=== PATIENT | female | born 1930 | race Caucasian/White ===

== ENCOUNTER 2017-02-09 17:06 | Inpatient (IN) | payer MEDICARE, OTHER ==
[2017-02-09] MEDS ORDERED: SODIUM CHLORIDE 0.9% 1,000 ML IV ONE (17:16)
[2017-02-09] MEDS ORDERED: IOPAMIDOL-300 100 ML VIAL IVP ONE (18:50)
[2017-02-09] MEDS ORDERED: VANCOMYCIN INJ 1 GM in SODIUM CHLORIDE 0.9% 250 ML IV STA (20:05)
[2017-02-09] MEDS ORDERED: AMPICILLIN/SULBACTAM 3 GM in SODIUM CHLORIDE 0.9% MINIBAG 100 ML IV STA (20:05)
[2017-02-09] MEDS ORDERED: VANCOMYCIN 1 GM VIAL ONE (20:12)
[2017-02-09] MEDS ORDERED: SODIUM CHLORIDE FLUSH 0.9% 10 ML SYRINGE IVP PRN (20:38)
[2017-02-09] MEDS ORDERED: HYDROcod/ACETAM 5/325 MG TABLET PO PRN (20:38)
[2017-02-09] MEDS ORDERED: ONDANSETRON 4 MG/2 ML VIAL IVP PRN (20:38)
[2017-02-09] MEDS ORDERED: ACETAMINOPHEN 325 MG TABLET PO PRN (20:41)
[2017-02-09] MEDS ORDERED: AMPICILLIN/SULBACTAM 3 GM in SODIUM CHLORIDE 0.9% MINIBAG 100 ML IV SCH (21:00)
[2017-02-09] MEDS ORDERED: VANCOMYCIN PER PHARMACY 1 GM in SODIUM CHLORIDE 0.9% 250 ML IV SCH (21:00)
[2017-02-09] MEDS ORDERED: INSULIN GLARGINE 10 UNIT SUBQ SCH (21:00)
[2017-02-09] MEDS: INSULIN ASPART 300 UNIT/3 ML PEN SUBQ SCH (22:01)
[2017-02-09] MEDS: INSULIN GLARGINE 300 UNIT/3 ML PEN SUBQ SCH (22:01)
[2017-02-09] MEDS: SODIUM CHLORIDE FLUSH 0.9% 10 ML SYRINGE IVP SCH (22:02)
[2017-02-09] MEDS: SODIUM CHLORIDE 0.9% 1,000 ML IV SCH (22:17)
[2017-02-09] MEDS: GENTAMICIN 0.3% OPHTH DROPS EACHEYE SCH (22:17)
[2017-02-10] MEDS: GENTAMICIN 0.3% OPHTH DROPS EACHEYE SCH ×6 (01:51→21:31)
[2017-02-10] MEDS: SODIUM CHLORIDE FLUSH 0.9% 10 ML SYRINGE IVP SCH ×3 (05:21→21:18)
[2017-02-10] MEDS: SODIUM CHLORIDE 0.9% 1,000 ML IV SCH ×2 (05:21→16:34)
[2017-02-10] MEDS: PANTOPRAZOLE 40 MG TABLET PO SCH (06:10)
[2017-02-10] MEDS ORDERED: AMPICILLIN/SULBACTAM 3 GM in SODIUM CHLORIDE 0.9% MINIBAG 100 ML IV SCH (08:00)
[2017-02-10] MEDS ORDERED: NON FORMULARY MED (Telmisartan [Micardis] 80 MG) PO SCH (09:00)
[2017-02-10] MEDS ORDERED: ENOXAPARIN 40 MG/0.4 ML SYRINGE SUBQ SCH (09:00)
[2017-02-10] MEDS ORDERED: NON FORMULARY MED (Simvastatin [Simvastatin] 20 MG) PO SCH (09:00)
[2017-02-10] MEDS: POLYETHYLENE GLYCOL 3350 17 GM PACKET PO SCH (09:05)
[2017-02-10] MEDS: CITALOPRAM 10 MG TABLET PO SCH (09:06)
[2017-02-10] MEDS: LEVOTHYROXINE 75 MCG TABLET PO SCH (09:06)
[2017-02-10] MEDS: ENOXAPARIN 30 MG/0.3 ML SYRINGE SUBQ SCH (09:06)
[2017-02-10] MEDS: INSULIN ASPART 300 UNIT/3 ML PEN SUBQ SCH ×4 (09:06→21:17)
[2017-02-10] MEDS: LOSARTAN 50 MG TABLET PO SCH (09:08)
[2017-02-10] MEDS: AMPICILLIN/SULBACTAM 3 GM in SODIUM CHLORIDE 0.9% MINIBAG 100 ML IV SCH ×2 (16:34→21:31)
[2017-02-10] MEDS: VANCOMYCIN INJ 1 GM in SODIUM CHLORIDE 0.9% 250 ML IV SCH (18:50)
[2017-02-10] MEDS: INSULIN GLARGINE 300 UNIT/3 ML PEN SUBQ SCH (21:18)
[2017-02-10] MEDS: ATORVASTATIN 10 MG TABLET PO SCH (21:31)
[2017-02-11] MEDS: GENTAMICIN 0.3% OPHTH DROPS EACHEYE SCH ×6 (02:43→21:45)
[2017-02-11] MEDS: AMPICILLIN/SULBACTAM 3 GM in SODIUM CHLORIDE 0.9% MINIBAG 100 ML IV SCH ×4 (03:26→21:37)
[2017-02-11] MEDS: SODIUM CHLORIDE 0.9% 1,000 ML IV SCH ×3 (04:23→21:36)
[2017-02-11] MEDS: SODIUM CHLORIDE FLUSH 0.9% 10 ML SYRINGE IVP SCH ×3 (05:39→21:46)
[2017-02-11] MEDS: PANTOPRAZOLE 40 MG TABLET PO SCH (06:06)
[2017-02-11] MEDS: CITALOPRAM 10 MG TABLET PO SCH (09:07)
[2017-02-11] MEDS: ENOXAPARIN 30 MG/0.3 ML SYRINGE SUBQ SCH (09:07)
[2017-02-11] MEDS: LEVOTHYROXINE 75 MCG TABLET PO SCH (09:07)
[2017-02-11] MEDS: SACCHAROMYCES BOULARDII 250 MG CAPSULE PO SCH ×2 (09:07→17:48)
[2017-02-11] MEDS: LOSARTAN 50 MG TABLET PO SCH (09:09)
[2017-02-11] MEDS: POLYETHYLENE GLYCOL 3350 17 GM PACKET PO SCH (09:17)
[2017-02-11] MEDS: INSULIN ASPART 300 UNIT/3 ML PEN SUBQ SCH ×4 (09:17→21:24)
[2017-02-11] MEDS: VANCOMYCIN INJ 1 GM in SODIUM CHLORIDE 0.9% 250 ML IV SCH (17:59)
[2017-02-11] MEDS: INSULIN GLARGINE 300 UNIT/3 ML PEN SUBQ SCH (21:42)
[2017-02-11] MEDS: ATORVASTATIN 10 MG TABLET PO SCH (21:42)
[2017-02-12] MEDS: GENTAMICIN 0.3% OPHTH DROPS EACHEYE SCH ×2 (01:25→06:38)
[2017-02-12] MEDS: AMPICILLIN/SULBACTAM 3 GM in SODIUM CHLORIDE 0.9% MINIBAG 100 ML IV SCH (04:08)
[2017-02-12] MEDS: SODIUM CHLORIDE FLUSH 0.9% 10 ML SYRINGE IVP SCH (06:37)
[2017-02-12] MEDS: PANTOPRAZOLE 40 MG TABLET PO SCH (06:37)
[2017-02-12] MEDS ORDERED: POTASSIUM CHLORIDE 20 MEQ TABLET PO STA (06:46)
[2017-02-12] MEDS ORDERED: POTASSIUM CHLORIDE 20 MEQ TABLET PO ONE ×2 (06:47→08:30)
[2017-02-12] MEDS: LOSARTAN 50 MG TABLET PO SCH (08:06)
[2017-02-12] MEDS: CITALOPRAM 10 MG TABLET PO SCH (08:06)
[2017-02-12] MEDS: SACCHAROMYCES BOULARDII 250 MG CAPSULE PO SCH (08:06)
[2017-02-12] MEDS: POLYETHYLENE GLYCOL 3350 17 GM PACKET PO SCH (08:06)
[2017-02-12] MEDS: ENOXAPARIN 30 MG/0.3 ML SYRINGE SUBQ SCH (08:06)
[2017-02-12] MEDS: LEVOTHYROXINE 75 MCG TABLET PO SCH (08:07)
[2017-02-12] MEDS: INSULIN ASPART 300 UNIT/3 ML PEN SUBQ SCH (08:07)
== END 2017-02-12 09:31 | disposition home or self-care (01) | DRG 603 ==
DX: L03.213 Periorbital cellulitis (principal); L03.211 Cellulitis of face; E11.8 Type 2 diabetes mellitus with unspecified complications; E78.00 Pure hypercholesterolemia, unspecified; E11.9 Type 2 diabetes mellitus without complications; Z79.4 Long term (current) use of insulin; E03.9 Hypothyroidism, unspecified; M19.90 Unspecified osteoarthritis, unspecified site; I10 Essential (primary) hypertension; Z79.899 Other long term (current) drug therapy; E87.6 Hypokalemia; E78.5 Hyperlipidemia, unspecified; F32.9 Major depressive disorder, single episode, unspecified

== ENCOUNTER 2017-02-17 11:02 | Outpatient (CLI) | payer MEDICARE, OTHER | END 2017-02-17 23:59 | disposition home or self-care (01) | DX: E11.9 Type 2 diabetes mellitus without complications (principal); E03.9 Hypothyroidism, unspecified; R09.82 Postnasal drip ==

== ENCOUNTER 2017-02-18 08:00 | Outpatient (CLI) | payer MEDICARE, OTHER | END 2017-02-18 23:59 | disposition home or self-care (01) | DX: R09.82 Postnasal drip (principal); E11.9 Type 2 diabetes mellitus without complications ==

== ENCOUNTER 2018-02-10 08:19 | Outpatient (CLI) | payer MEDICARE, OTHER ==
[2018-02-10 13:16] LABS: THYROID STIMULATING HORMONE 27.17 uIU/mL (0.34-5.60)
[2018-02-10 13:18] LABS: FREE T4 (FREE THYROXINE) 0.49 ng/dL (0.58-1.64)
[2018-02-10 13:20] LABS: ALBUMIN 4.2 g/dL (3.2-5.5); ALBUMIN/GLOBULIN RATIO 1.4 (1.0-2.2); ALKALINE PHOSPHATASE 63 IU/L (42-121); ALT ALANINE AMINOTRANSFERASE 12 IU/L (10-60); AST ASPARTATE AMINOTRANSFERASE 20 IU/L (10-42); BILIRUBIN,TOTAL 0.6 mg/dL (0.2-1.0); BUN - BLOOD UREA NITROGEN 16 mg/dL (6-20); CALCIUM 9.3 mg/dL (8.5-10.3); CARBON DIOXIDE - CO2 26 mmol/L (21-32); CHLORIDE 107 mmol/L (101-111); CHOL/HDL RATIO 3.5 (<4.4); CHOLESTEROL 143 mg/dL; CREATININE 1.1 mg/dL (0.4-1.0); GFR - MDRD 47 (>89); GLUCOSE 116 mg/dL (70-100); HDL CHOLESTEROL 41 mg/dL; LDL CHOLESTEROL,CALCULATED 75 mg/dL; LDL/HDL RATIO 1.8 (<4.4); SODIUM 140 mmol/L (135-145); TOTAL PROTEIN 7.3 g/dL (6.7-8.2); VLDL CHOLESTEROL 27 mg/dL
[2018-02-10 13:52] LABS: HEMOGLOBIN A1C 0.89 g/dL; HEMOGLOBIN A1C % 7.2 % (4.6-6.2)
== END 2018-02-10 08:20 | disposition home or self-care (01) ==
LOC: LAB.WCP 08:19
PROVIDERS: ATTEND Family Medicine
DX: E03.9 Hypothyroidism, unspecified (principal); E11.9 Type 2 diabetes mellitus without complications; E78.5 Hyperlipidemia, unspecified; R09.82 Postnasal drip
CPT/HCPCS: 36415; 80053; 80061; 82043; 83036; 83721; 84439; 84443

== ENCOUNTER 2018-02-12 08:00 | Outpatient (CLI) | payer MEDICARE, OTHER | END 2018-02-12 08:01 | disposition home or self-care (01) | LOC: LAB.WCP 08:00 | PROVIDERS: ATTEND Family Medicine | DX: R09.82 Postnasal drip (principal); E11.9 Type 2 diabetes mellitus without complications | CPT/HCPCS: 82043 ==

== ENCOUNTER 2018-05-22 13:52 | Outpatient (CLI) | payer MEDICARE, OTHER ==
--- NOTE | 2018-05-22 15:58 | XRAY Report ---
Procedure Date: 05/22/2018 Accession Number: [id number] / [id number] Procedure: XR - Chest 2 View X-Ray CPT Code: 66369 FULL RESULT: EXAM: Chest 2 View X-Ray DATE: 05/22/2018 2:28 PM CLINICAL HISTORY: COUGH COMPARISON: 11/28/2016. TECHNIQUE: 2 views. FINDINGS: Lungs/Pleura: No focal opacities evident. No pneumothorax or pleural effusion. Flattening of the diaphragms with increased lung volumes consistent with emphysema or obstructive lung disease. Mediastinum: Heart and mediastinal contours are unremarkable. Other: None. IMPRESSION: Stable appearance of emphysema/obstructive lung disease without acute cardiopulmonary abnormality. RADIA
== END 2018-05-22 13:53 | disposition home or self-care (01) ==
LOC: DI 13:52
PROVIDERS: ATTEND Family Medicine
DX: J43.9 Emphysema, unspecified (principal)
CPT/HCPCS: 71046

== ENCOUNTER 2018-05-29 11:22 | Outpatient (CLI) | payer MEDICARE, OTHER ==
[2018-05-29 20:04] LABS: HB2 TOTAL 15.4 g/dL; HEMOGLOBIN A1C 0.78 g/dL; HEMOGLOBIN A1C % 6.8 % (4.6-6.2)
== END 2018-05-29 11:23 | disposition home or self-care (01) ==
LOC: LAB.WCP 11:22
PROVIDERS: ATTEND Family Medicine
DX: E11.9 Type 2 diabetes mellitus without complications (principal)
CPT/HCPCS: 36415; 83036

== ENCOUNTER 2018-11-11 11:58 | Outpatient (CLI) | payer MEDICARE, OTHER ==
[2018-11-11 18:49] LABS: BASOPHILS # (AUTO) 0.1 10^3/uL (0.0-0.1); BASOPHILS % (AUTO) 1.2 %; EOSINOPHILS # (AUTO) 0.3 10^3/uL (0.0-0.7); EOSINOPHILS % (AUTO) 4.3 %; HGB - HEMOGLOBIN 15.5 g/dL (12.0-16.0); LYMPHOCYTES # (AUTO) 1.7 10^3/uL (1.5-3.5); LYMPHOCYTES % (AUTO) 26.9 %; MEAN CORPUSCULAR HEMOGLOBIN 30.5 pg (27.0-31.0); MEAN CORPUSCULAR HGB CONC 33.4 g/dL (32.0-36.0); MEAN CORPUSCULAR VOLUME 91.1 fL (81.0-99.0); MEAN PLATELET VOLUME 7.8 fL (7.9-10.8); MONOCYTES # (AUTO) 0.5 10^3/uL (0.0-1.0); NEUTROPHILS # (AUTO) 3.9 10^3/uL (1.5-6.6); NEUTROPHILS % (AUTO) 60.6 %; PLT - PLATELET COUNT 257 10^3/uL (130-450); RED BLOOD COUNT 5.07 10^6/uL (4.20-5.40); RED CELL DISTRIBUTION WIDTH 13.7 % (12.0-15.0); WHITE BLOOD COUNT 6.4 x10^3/uL (4.8-10.8)
[2018-11-11 19:05] LABS: ALBUMIN 4.3 g/dL (3.2-5.5); ALBUMIN/GLOBULIN RATIO 1.4 (1.0-2.2); BILIRUBIN,TOTAL 0.7 mg/dL (0.2-1.0); CALCIUM 9.1 mg/dL (8.5-10.3); TOTAL PROTEIN 7.4 g/dL (6.7-8.2)
[2018-11-11 19:13] LABS: HB2 TOTAL 16.6 g/dL; HEMOGLOBIN A1C 0.82 g/dL; HEMOGLOBIN A1C % 6.7 % (4.6-6.2)
[2018-11-11 19:41] LABS: FREE T4 (FREE THYROXINE) 0.55 ng/dL (0.58-1.64)
== END 2018-11-11 23:59 ==
LOC: LAB.WCP 11:58
PROVIDERS: ATTEND Family Medicine
DX: N28.9 Disorder of kidney and ureter, unspecified (principal); E11.9 Type 2 diabetes mellitus without complications; E03.9 Hypothyroidism, unspecified; I10 Essential (primary) hypertension; R19.7 Diarrhea, unspecified
CPT/HCPCS: 36415; 80053; 83036; 83690; 84439; 84443; 85025

== ENCOUNTER 2019-04-10 02:10 | Outpatient (CLI) | payer MEDICARE, OTHER | END 2019-04-10 02:11 | disposition critical access hospital (66) | LOC: EMS 02:10 | PROVIDERS: ATTEND Surgery | DX: R10.9 Unspecified abdominal pain (principal); R11.0 Nausea | CPT/HCPCS: A0425; A0429 ==

== ENCOUNTER 2019-04-10 02:24 | Inpatient (IN) | payer MEDICARE, OTHER ==
[2019-04-10 02:56] LABS: BASOPHILS # (AUTO) 0.1 10^3/uL (0.0-0.1); BASOPHILS % (AUTO) 0.6 %; EOSINOPHILS # (AUTO) 0.1 10^3/uL (0.0-0.7); EOSINOPHILS % (AUTO) 0.9 %; HGB - HEMOGLOBIN 14.4 g/dL (12.0-16.0); LYMPHOCYTES % (AUTO) 8.3 %; MEAN CORPUSCULAR HEMOGLOBIN 30.8 pg (27.0-31.0); MEAN CORPUSCULAR HGB CONC 34.4 g/dL (32.0-36.0); MEAN CORPUSCULAR VOLUME 89.5 fL (81.0-99.0); MEAN PLATELET VOLUME 7.4 fL (7.9-10.8); MONOCYTES # (AUTO) 0.9 10^3/uL (0.0-1.0); MONOCYTES % (AUTO) 7.6 %; NEUTROPHILS # (AUTO) 9.6 10^3/uL (1.5-6.6); NEUTROPHILS % (AUTO) 82.6 %; PLT - PLATELET COUNT 248 10^3/uL (130-450); RED BLOOD COUNT 4.67 10^6/uL (4.20-5.40); RED CELL DISTRIBUTION WIDTH 13.5 % (12.0-15.0); WHITE BLOOD COUNT 11.6 x10^3/uL (4.8-10.8)
--- NOTE | 2019-04-10 02:59 | ED Physician Documentation ---
PD HPI ABD PAIN - Stated complaint Stated Complaint: ABD PAIN - Chief complaint Chief Complaint: Abd Pain - History obtained from History obtained from: Patient - History of Present Illness Timing - onset: How many days ago (2-3) Timing - duration: Days Timing - details: Gradual onset, Constant, Waxing and waning Pain level now: 8 Quality: Pain Location: All over / everywhere Radiation: Other (does not radiate) Improved by: Laying still Worsened by: Moving, Palpation Associated symptoms: Nausea. No: Fever, Vomiting, Diarrhea, Constipation Similar symptoms before: Has not had sx before Recently seen: Not recently seen Review of Systems Constitutional: reports: Reviewed and negative Eyes: reports: Reviewed and negative Ears: reports: Reviewed and negative Nose: reports: Reviewed and negative Throat: reports: Reviewed and negative Cardiac: reports: Reviewed and negative Respiratory: reports: Reviewed and negative GI: reports: Abdominal Pain, Nausea. 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 - Present Medications Home Medications: Ambulatory Orders Medication Instructions Recorded Confirmed Insulin Glargine [Lantus] 30 unit SUBQ QPM 02/09/17 02/09/17 Simvastatin 20 mg PO DAILY 02/09/17 04/10/19 Aspirin [Aspirin EC] 81 mg PO DAILY 04/10/19 04/10/19 Fluticasone [Flonase] 1 sprays DARIEL BID 04/10/19 04/10/19 Levothyroxine [Synthroid] 88 mcg PO QDAC 04/10/19 04/10/19 - Allergies Allergies/Adverse Reactions: Allergies Allergy/AdvReac Type Severity Reaction Status Date / Time No Known Drug Allergies Allergy Verified 02/09/17 17:15 - Social History Does the pt smoke?: No Smoking Status: Never smoker PD ED PE NORMAL - Vitals Vital signs reviewed: Yes - General General: Alert and oriented X 3, Well developed/nourished, Other (appears uncomfortable) - HEENT HEENT: Moist mucous membranes - Neck Neck: Supple, no meningeal sign - Cardiac Cardiac: RRR, No murmur - Respiratory Respiratory: No respiratory distress, Clear bilaterally - Abdomen Abdomen: Soft, Non distended - Back Back: No CVA TTP - Derm Derm: Normal color, Warm and dry, No rash - Extremities Extremities: No edema PD ED PE EXPANDED - Abdomen Abdomen: Tender to palpation, Generalized/diffuse. No: Rebound, Guarding Results - Vitals Vitals: Vital Signs - 24 hr 04/10/19 04/10/19 04/10/19 02:37 03:47 04:47 Temperature 36.6 C Heart Rate 110 H 96 94 Respiratory 20 18 18 Rate Blood Pressure 150/73 H 132/67 H 148/80 H O2 Saturation 93 94 92 Oxygen O2 Source Room air - Labs Labs: Laboratory Tests 04/10/19 04/10/19 04/10/19 02:40 02:40 02:40 WBC 11.6 H RBC 4.67 Hgb 14.4 Hct 41.8 MCV 89.5 MCH 30.8 MCHC 34.4 RDW 13.5 Plt Count 248 MPV 7.4 L Neut # (Auto) 9.6 H Lymph # (Auto) 1.0 L Centre # (Auto) 0.9 Eos # (Auto) 0.1 Baso # (Auto) 0.1 Absolute Nucleated RBC 0.00 Nucleated RBC % 0.0 Sodium 141 Potassium 3.6 Chloride 107 Carbon Dioxide 21 Anion Gap 13.0 BUN 14 Creatinine 0.9 Estimated GFR (MDRD) 59 L Glucose 151 H Calcium 9.1 Total Bilirubin 1.2 H AST 17 ALT < 10 L Alkaline Phosphatase 65 Total Protein 7.4 Albumin 3.9 Globulin 3.5 Albumin/Globulin Ratio 1.1 Amylase 1906 H* Lipase 1230 H - Rads (name of study) CT A/P Radiology: Prelim report reviewed, See rad report PD MEDICAL DECISION MAKING - ED course Complexity details: reviewed results, re-evaluated patient, considered differential, d/w patient Departure - Departure Disposition: ED Place in Observation Clinical Impression: Pancreatitis Condition: Good Discharge Date/Time: 04/10/19 06:50
[2019-04-10 03:10] LABS: ALBUMIN 3.9 g/dL (3.2-5.5); ALBUMIN/GLOBULIN RATIO 1.1 (1.0-2.2); ALKALINE PHOSPHATASE 65 IU/L (42-121); ALT ALANINE AMINOTRANSFERASE < 10 IU/L (10-60); AST ASPARTATE AMINOTRANSFERASE 17 IU/L (10-42); BILIRUBIN,TOTAL 1.2 mg/dL (0.2-1.0); BUN - BLOOD UREA NITROGEN 14 mg/dL (6-20); CALCIUM 9.1 mg/dL (8.5-10.3); CARBON DIOXIDE - CO2 21 mmol/L (21-32); CHLORIDE 107 mmol/L (101-111); CREATININE 0.9 mg/dL (0.4-1.0); GFR - MDRD 59 (>89); GLUCOSE 151 mg/dL (70-100); SODIUM 141 mmol/L (135-145); TOTAL PROTEIN 7.4 g/dL (6.7-8.2)
[2019-04-10 03:24] LABS: LIPASE 1230 U/L (22-51)
[2019-04-10] MEDS ORDERED: IOVERSOL 320 100 ML VIAL IVP ONE ×2 (03:56→04:20)
--- NOTE | 2019-04-10 04:56 | CT Report ---
Reason: abd. pain Procedure Date: 04/10/2019 Accession Number: [id number] / [id number] Procedure: CT - Abdomen/Pelvis W CPT Code: FULL RESULT: EXAM: CT ABDOMEN AND PELVIS EXAM DATE: 04/10/2019 04:18 AM. CLINICAL HISTORY: Abdominal pain lower abdomen pain and nausea for 5 days COMPARISONS: None. TECHNIQUE: Routine helical CT imaging was performed through the abdomen and pelvis. IV contrast: 100 ML Optiray 320. Enteric contrast: No. Reconstructions: Coronal and sagittal. In accordance with CT protocol optimization, one or more of the following dose reduction techniques were utilized for this exam: automated exposure control, adjustment of mA and/or KV based on patient size, or use of iterative reconstructive technique. FINDINGS: ABDOMEN: Liver: No significant abnormality. Stomach/Distal Esophagus: Nonspecific small amount of fluid is seen paralleling the greater curvature of the stomach. Gallbladder: Prior cholecystectomy. Bile Ducts: No significant abnormality. Pancreas: There is a small fluid-filled abnormality within the anterior part of the pancreas neck, with a lobular configuration. This measures 14 mm (image 25 series 3). It is uncertain if this is responsible for the perigastric fluid collection (such as a leak). Remainder of the pancreatic duct is normal in caliber and configuration. There is equivocal. Pancreatic stranding. Spleen: No significant abnormality. Kidneys: No suspicious solid appearing lesion. No hydronephrosis. Adrenals: Nonspecific diffuse enlargement of the left adrenal is noted. Bowel: No obstruction. Average fecal residual. Severity 1 diverticulosis is present. Appendix: Normal. Lymph Nodes: No pathologically enlarged nodes. Vasculature: Normal caliber aorta. Moderate aortic and branch was a lateral sclerosis. Fluid: There is a small amount of free fluid. Trace perihepatic ascites is noted. Abdominal Wall: No significant abnormality. Other: No significant abnormality. PELVIS: Uterus and Ovaries: Surgically absent uterus. Ovaries are not visualized, possibly surgically absent as well. Bladder: No significant abnormality. Lymph Nodes: No pathologically enlarged nodes. Fluid: Small amount of fluid layers within the pelvis. Other: None. BONES: No suspicious bony lesions. However, bones are at least moderately osteopenic. This reduces exam sensitivity and specificity for detection of subtle bony lesions and/or fractures. Severe diskogenic vertebral changes noted at L2-L3. Moderate to severe multilevel lumbar degenerative change. LOWER CHEST: Linear subsegmental opacities within the lung bases are seen bilateral, suggestive of atelectasis and/or scarring. Small developing right middle lobe perihilar infection difficult to exclude with certainty. There is no signal can diffusion. IMPRESSION: 1. There is subtle parapancreatic fat stranding noted. This may be artifact or early pancreatitis. Correlation with lipase values recommended. 2. There is a small focal low-density lesion within the pancreatic neck, measuring 1.4 cm. This could be secondary to a pseudocyst from a prior episode of pancreatitis. Alternatively it could represent a small focal area of duct disruption (duct leak). Differential diagnosis also includes side branch intraductal hyper-and mucinous neoplasm or other cystic neoplasm. As such, follow-up pancreas protocol MRI recommended at 2 weeks. 3. There is small volume ascites. Small amount of fluid is also seen within the lesser sac paralleling the greater curvature of the stomach. These could be secondary to suspected pancreatitis (above) or other nonspecific third spacing of fluid. Correlation is needed. 2. Prior cholecystectomy. No definite pathologic delay ductal dilation. 3. Nonspecific adreniform enlargement of the left adrenal. 4. There is moderate to severe distal colonic diverticulosis without definite acute diverticulitis evident on this examination. 5. Streaky bibasilar airspace disease, probably atelectasis. Small right middle lobe perihilar developing pneumonia difficult to exclude entirely. RADIA
[2019-04-10] MEDS ORDERED: SODIUM CHLORIDE 0.9% 1,000 ML IV STA (05:23)
[2019-04-10] MEDS ORDERED: ONDANSETRON 4 MG/2 ML VIAL IVP PRN (05:31)
[2019-04-10] MEDS ORDERED: SODIUM CHLORIDE 0.9% 1,000 ML IV SCH (06:00)
--- NOTE | 2019-04-10 06:31 | HISTORY & PHYSICAL EXAMINATION ---
Chief Complaint - Chief Complaint Chief Complaint: epigastric abdominal pain History of Present Illness - Admitted From Admitted From:: [facility] ED - History Obtained From Records Reviewed: yes History obtained from: patient - History of Present Illness HPI Comment/Other: Patient seen on 04/10/19 at 0635 am Patient is an 88 y/o female who presented to the ED with epigastric pain which has been going on for the past 1wek. She describes it as an ache with no radiation. She rates the pain 8/10. She finally came in because it has been getting worse. She denies any previous occurence. She nicho any trauma or significant alcohol use. Work up in the ED included lipase which was elevated at 1200. CT of the abdomen was also suggestive of pancreatitis. She denied chest pain, THIEN, nausea, vomiting, fever or chills. As a result of the above finding, she is being admitted for further management. The rest of her history is unremarkable. 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 Social History Notes: Lives with . Denies alcohol, tobacco or illicit drug use - Substance History Use: Uses substance without health or social issues: NONE - POLST Patient has POLST: No POLST Status: Full Code Meds/Allgy - Home Medications Home Medications: Ambulatory Orders Medication Instructions Recorded Confirmed Insulin Glargine [Lantus] 10 unit SUBQ QPM 02/09/17 04/10/19 Levothyroxine Sodium [Synthroid] 150 mcg PO DAILY 02/09/17 04/10/19 Simvastatin 20 mg PO DAILY 02/09/17 04/10/19 - Allergies Allergies/Adverse Reactions: Allergies Allergy/AdvReac Type Severity Reaction Status Date / Time No Known Drug Allergies Allergy Verified 02/09/17 17:15 Review of Systems - Constitutional Constitutional: denies: Fever, Chills, Weakness - Eyes Eyes: denies: Blurred vision, Vision loss, Dipolpia - Ears, Nose & Throat Ears, Nose & Throat: denies: Tinnitus, Nasal pain, Nasal discharge, Sore throat - Cardiovascular Cariovascular: denies: Chest pain, Edema, Lightheadedness, Syncope, Exertional dyspnea - Respiratory Respiratory: denies: Cough, Sputum production, Wheezing, SOB at rest, SOB with exertion - Gastrointestinal Gastrointestinal: reports: Abdominal pain. denies: Abdominal distention, Con stipation, Diarrhea, Black stools, Nausea, Vomiting - Genitourinary Genitourinary: denies: Dysuria, Frequency, Urgency, Hematuria, Incontinence, Flank pain - Musculoskeletal Musculoskeletal: denies: Muscle pain, Back pain, Muscle weakness, Gout - Integumentary Integumentary: denies: Rash, Pruritis, Lesions - Neurological Neurological: denies: General weakness, Headache, Dizziness, Numbness, Memory problems - Psychiatric Psychiatric: reports: Depression. denies: Anxiety - Endocrine Endocrine: denies: Polyuria, Polydypsia - Hematologic/Lymphatic Hematologic/Lymphatic: denies: Anemia, Bruising, Petechiae Prior Level of Functionality: Patient is independent of activities of daily living Exam - Vital Signs Vital Signs: Vital Signs x48h Temp Pulse Resp BP Pulse Ox 04/10/19 05:56 99 20 122/71 93 04/10/19 04:47 94 18 148/80 H 92 04/10/19 03:47 96 18 132/67 H 94 04/10/19 02:37 36.6 C 110 H 20 150/73 H 93 - Physical Exam General Appearance: positive: Alert, Moderate distress Eyes Bilateral: positive: Normal inspection, PERRL, EOMI ENT: positive: ENT inspection nml, No signs of dehydration Neck: positive: Nml inspection, No JVD, Trachea midline Respiratory: positive: Chest non-tender, No respiratory distress, Breath sounds nml. negative: Wheezes, Rales, Rhonchi Cardiovascular: positive: No murmur, No gallop, Tachycardia Abdomen: positive: Nml bowel sounds, No distention, Tenderness, Guarding Back: positive: Nml inspection, CVA tenderness (R) Skin: positive: No rash, Warm Extremities: positive: Non-tender, Full ROM, Nml appearance, No pedal edema Neurologic/Psychiatric: positive: Oriented x3, CN's nml (2-12), Motor nml, Sensation nml Conclusion/Plan - Problem List (1) Pancreatitis Conclusion/Plan: Etiology undetermined Clear liquid diet. Pain management IV hydration. Trend lipase Check lipid levels Qualifiers: Chronicity: acute Pancreatitis type: unspecified pancreatitis type Acute pancreatitis complication: no infection or necrosis Qualified Code(s): K85.90 - Acute pancreatitis without necrosis or infection, unspecified (2) Hypothyroidism Conclusion/Plan: On synthroid (3) Hypertension Conclusion/Plan: Resume micardis. Hold indapamide (4) Hyperlipidemia Conclusion/Plan: On simvastatin (5) Diabetes Conclusion/Plan: On lantus 30 units subq Will order 20 units subq for now and change accordingly SSI. Accu checks Qualifiers: Diabetes mellitus exterminator insulin use: with exterminator use (6) GERD (gastroesophageal reflux disease) Conclusion/Plan: Protonix 40mg daily (7) Depression Conclusion/Plan: On citalopram - Lab Results Fish Bones: 04/10/19 02:40 04/10/19 02:40 Core Measures - Anticipated LOS I expect patient to be DC'd or transferred within 96 hours.: Yes - DVT/VTE - Prophylaxis VTE/DVT Device ordered at admit?: Yes VTE/DVT Prophylaxis med ordered at admit?: Yes
[2019-04-10] MEDS: MORPHINE 2 MG/ML CARPUJECT IVP PRN ×3 (07:00→17:11)
[2019-04-10] MEDS: SODIUM CHLORIDE FLUSH 0.9% 10 ML SYRINGE IVP PRN ×2 (07:00→09:40)
[2019-04-10] MEDS: INSULIN ASPART 300 UNIT/3 ML PEN SUBQ SCH ×4 (08:14→20:24)
[2019-04-10] MEDS: POLYETHYLENE GLYCOL 3350 17 GM PACKET PO SCH (08:14)
[2019-04-10] MEDS: SODIUM CHLORIDE FLUSH 0.9% 10 ML SYRINGE IVP SCH ×2 (08:14→17:11)
[2019-04-10] MEDS: PANTOPRAZOLE 40 MG VIAL IVP SCH (08:14)
[2019-04-10] MEDS: HEPARIN 5,000 UNIT/ML VIAL SUBQ SCH ×2 (08:15→21:27)
[2019-04-10] MEDS: LACTATED RINGERS 1,000 ML IV SCH ×3 (08:24→20:04)
--- NOTE | 2019-04-10 11:53 | MISCELLANEOUS PROVIDER NOTE ---
Miscellaneous Provider Note - - Note: HPI: Patient is an 88 y/o female with a past medical history of hypertension, hyperlipidemia, hypothyroidism, patient type 2 diabetes mellitus insulin requiring, major depressive disorder, GERD who presented to the ED with epigastric pain which has been going on for the past 1wek. She describes it as an ache with no radiation. She rates the pain 8/10. She finally came in because it has been getting worse. She denies any previous occurence. She nicho any trauma or significant alcohol use. Work up in the ED included lipase which was elevated at 1200. CT of the abdomen was also suggestive of pancreatitis. She denied chest pain, THIEN, nausea, vomiting, fever or chills. As a result of the above finding, she is being admitted for further management. The rest of her history is unremarkable. Subjective: Patient seen at bedside with intermittent epigastric pain however improved on morphine. Denies fevers, nausea, vomiting, GI/ symptoms. Objective: Vital signs hemodynamically stable. Afebrile, blood pressure 122/71, RR 20, 93% O2 saturation room air. General: Patient alert and oriented x3 in no acute respiratory distress. Pleasant and with some epigastric pain. HEENT: NCAT, Moist mucous membranes. Neck: No JVD, no bruits, trachea midline, no thyromegaly CV/lungs: RRR. S1-S2 within normal limits. No murmurs, gallops, clicks. CTA BL Abdomen: Positive tenderness in the epigastrium with no rebound, no ascites, no hepatosplenomegaly. Decreased bowel sounds all quadrants. Extremities/skin: No edema, clubbing, or cyanosis. 2+ pulses dorsalis pedis bilaterally. No maculopapular rashes. Neuro: Grossly intact Labs: Reviewed Imaging studies: Reviewed Assessment/plan: (1) Pancreatitis Conclusion/Plan: Etiology undetermined, However suspected drug-induced pancreatitis with simvastatin/hydrochlorothiazide use. Lipid panel in a.m. Trend lipase. Clear liquid diet, pain management, bowel rest, IV fluids for hydration, Switch to LR at 175 mL/HR. Qualifiers: Chronicity: acute Pancreatitis type: unspecified pancreatitis type Acute pancreatitis complication: no infection or necrosis Qualified Code(s): K85.90 - Acute pancreatitis without necrosis or infection, unspecified (2) Hypothyroidism Conclusion/Plan: On synthroid, To continue with same dosage at home. (3) Hypertension Conclusion/Plan: Resume micardis. Hold indapamide. (4) Hyperlipidemia Conclusion/Plan: Hold simvastatin for now. (5) Insulin requiring type 2 Diabetes Mellitus Conclusion/Plan: Patient currently on 30 units subcutaneous daily of Lantus to continue, 20 units subcu for now and change accordingly for bolus coverage with Accu-Cheks. Hemoglobin A1c. Qualifiers: Diabetes mellitus mcfp insulin use: with mcfp use (6) GERD (gastroesophageal reflux disease) Conclusion/Plan: Protonix 40mg daily (7) Depression Conclusion/Plan: Previously on Celexa, however do not see this on patient's reconciliation. CODE STATUS: Full code
[2019-04-10 15:07] LABS: BILIRUBIN,URINE NEGATIVE (NEGATIVE); GLUCOSE, URINE (UA) NEGATIVE (NEGATIVE); KETONES,URINE (UA) 15 mg/dL (NEGATIVE); LEUKOCYTE ESTERASE, URINE NEGATIVE (NEGATIVE); NITRITE,URINE NEGATIVE (NEGATIVE); OCCULT BLOOD,URINE SMALL (NEGATIVE); PROTEIN,URINE NEGATIVE (NEGATIVE); UROBILINOGEN,URINE 0.2 (NORMAL) E.U./dL (NORMAL)
[2019-04-10 15:14] LABS: CLARITY,URINE HAZY (CLEAR)
[2019-04-10 15:40] LABS: BACTERIA,URINE None Seen /HPF (None Seen); RBC,URINE 0-5 /HPF (0-5); SQUAMOUS EPITHELIAL CELL,UR NONE SEEN (<= Few)
[2019-04-10 16:14] LABS: HB2 TOTAL 13.1 g/dL; HEMOGLOBIN A1C 0.63 g/dL; HEMOGLOBIN A1C % 6.6 % (4.6-6.2)
[2019-04-10] MEDS: HYDROcod/ACETAM 5/325 MG TABLET PO PRN (18:20)
[2019-04-10] MEDS: INSULIN GLARGINE 300 UNIT/3 ML PEN SUBQ SCH (20:24)
[2019-04-11] MEDS: SODIUM CHLORIDE FLUSH 0.9% 10 ML SYRINGE IVP SCH (00:56)
[2019-04-11] MEDS: LACTATED RINGERS 1,000 ML IV SCH ×3 (02:07→17:27)
[2019-04-11] MEDS: HYDROcod/ACETAM 5/325 MG TABLET PO PRN ×2 (03:09→16:47)
[2019-04-11] MEDS: SODIUM CHLORIDE FLUSH 0.9% 10 ML SYRINGE IVP PRN (06:06)
[2019-04-11] MEDS: LEVOTHYROXINE 88 MCG TABLET PO SCH (06:06)
[2019-04-11] MEDS: PANTOPRAZOLE 40 MG VIAL IVP SCH (06:06)
[2019-04-11] MEDS: MORPHINE 2 MG/ML CARPUJECT IVP PRN (06:14)
[2019-04-11 06:30] LABS: BASOPHILS # (AUTO) 0.1 10^3/uL (0.0-0.1); BASOPHILS % (AUTO) 0.6 %; EOSINOPHILS # (AUTO) 0.1 10^3/uL (0.0-0.7); EOSINOPHILS % (AUTO) 1.6 %; HGB - HEMOGLOBIN 13.6 g/dL (12.0-16.0); LYMPHOCYTES # (AUTO) 1.2 10^3/uL (1.5-3.5); LYMPHOCYTES % (AUTO) 12.6 %; MEAN CORPUSCULAR HEMOGLOBIN 30.4 pg (27.0-31.0); MEAN CORPUSCULAR HGB CONC 34.2 g/dL (32.0-36.0); MEAN CORPUSCULAR VOLUME 88.9 fL (81.0-99.0); MEAN PLATELET VOLUME 7.1 fL (7.9-10.8); MONOCYTES # (AUTO) 0.7 10^3/uL (0.0-1.0); MONOCYTES % (AUTO) 7.7 %; NEUTROPHILS # (AUTO) 7.4 10^3/uL (1.5-6.6); NEUTROPHILS % (AUTO) 77.5 %; PLT - PLATELET COUNT 245 10^3/uL (130-450); RED BLOOD COUNT 4.48 10^6/uL (4.20-5.40); RED CELL DISTRIBUTION WIDTH 13.6 % (12.0-15.0); WHITE BLOOD COUNT 9.6 x10^3/uL (4.8-10.8)
[2019-04-11 06:45] LABS: CALCIUM 8.3 mg/dL (8.5-10.3); CREATININE 0.8 mg/dL (0.4-1.0)
[2019-04-11 06:50] LABS: CHOL/HDL RATIO 4.7 (<4.4); CHOLESTEROL 131 mg/dL; HDL CHOLESTEROL 28 mg/dL; LDL CHOLESTEROL,CALCULATED 77 mg/dL; LDL/HDL RATIO 2.8 (<4.4); VLDL CHOLESTEROL 26 mg/dL
--- NOTE | 2019-04-11 07:13 | Discharge Plan ---
Discharge Plan Disposition: Home, Self Care Condition: Good Prescriptions: amLODIPine [Norvasc] 5 mg PO DAILY #30 tablet Famotidine [Pepcid] 20 mg PO BID #20 tablet HYDROcod/ACETAM 5/325 [[place] 5/325] 1 tab PO Q6H PRN #40 tablet PRN Reason: Pain 5 to 7 [place]-3/Dha/Epa/Fish Oil [[place] 3 500 Softgel] 1 each PO BID #60 capsule Diet: Diabetic (2 g sodium, carb controlled diet) Activity Restrictions: No Restrictions Shower Restrictions: No Driving Restrictions: No Instruction Topics: Pantoprazole tablets, Pancreatitis Acute Dc, ED Diet Edwards Ch, ED Diet Low Fat Additional Instructions or Follow Up instructions: You were admitted for an acute pancreatitis suspected to be drug related to your hydrochlorothiazide and diuretic that you are on. He will discontinue this diuretic as this may directly be linked to your condition. You were given IV fluids throughout your hospitalization as well as bowel rest pain control and supportive care. We checked your lipid panel and this seemed to be within acceptable levels; Total cholesterol was 131, triglycerides 132, LDL 77, and your HDL 28. In addition the CT of the abdomen was suggestive of pancreatitis with surrounding fluid but no other pathology was noted. You will continue with the prescribed medicines here at the hospital for pain management as well as a new prescription for your blood pressure as well as your cholesterol. He will return to your primary care provider in 1 or 2 weeks for the reevaluation of your resolving pancreatitis. Avoid fatty meals as this may exacerbate the pancreatitis. No Smoking: If you smoke, Please STOP! Call for help. Follow-up with: Gilmar Ya MD [Primary Care Provider] - 2 Weeks (Return to PCP in 1 or 2 weeks)
--- NOTE | 2019-04-11 07:24 | DISCHARGE SUMMARY ---
Discharge Summary Admit Date: 04/10/19 Discharge Date: 04/12/19 Discharging Provider: Dr. 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 She describes it as an ache with no radiation. She rates the pain 8/10. She finally came in because it has been getting worse. She denies any previous occurence. She nicho any trauma or significant alcohol use. Work up in the ED included lipase which was elevated at 1200. CT of the abdomen was also suggestive of pancreatitis. She denied chest pain, THIEN, nausea, vomiting, fever or chills. As a result of t he above finding, she is being admitted for further management. The rest of her history is unremarkable. - HOSPITAL COURSE Hospital Course: Ms. Nancy Schroeder was admitted for an acute pancreatitis with signs and symptoms of epigastric pain which has been going on for the past week which she describes as acute intermittent and aching with no radiation to mid back. CT abdomen pelvis was suggestive of pancreatitis with peripancreatic fluid and no necrosis, pleural effusions, or any other pathology. Patient denied chest pain, nausea, vomiting, fevers or chills. Patient also denied diarrhea, hematemesis, hematochezia. In addition the initial lipase was 1230 with elevated amylase. Patient mentioned being on Micardis with hydrochlorothiazide along with a statin. Patient has a history of hypothyroidism, and insulin requiring type 2 diabetes mellitus as well as Hyperlipidemia. Patient's fasting lipid panel yielded a total cholesterol of 131, LDL of 77, triglycerides 132, HDL of 28 which do not correlate to lipid induced pancreatitis. Most likely patient had a drug-induced pancreatitis versus ideal pathic pathology as patient's LFTs and biliary tree were free of any evidence of stone formation or impaction. Patient's lipase decreased significantly to 95 upon discharge as a result of bowel rest, pain control, and aggressive IV fluid resuscitation with LR. Patient was instructed to discontinue hydrochlorothiazide for the management of her blood pressure as well as simvastatin for the management of her Hyperlipidemia. Instead she will take Norvasc and omega-3 fatty acids which will be prescribed to her. In addition she will be given a prescription for limited quantity of [place] along with famotidine for GI symptoms. Upon discharge she was hemodynamically stable, afebrile and with significant improvement to her epigastric pain. PCP to follow in 1-2 weeks. - ALLERGIES Allergies/Adverse Reactions: Allergies Allergy/AdvReac Type Severity Reaction Status Date / Time No Known Drug Allergies Allergy Verified 02/09/17 17:15 - MEDICATIONS Home Medications: Ambulatory Orders Medication Instructions Recorded Confirmed Insulin Glargine [Lantus] 30 unit SUBQ QPM 02/09/17 02/09/17 Aspirin [Aspirin EC] 81 mg PO DAILY 04/10/19 04/10/19 Fluticasone [Flonase] 1 sprays DARIEL BID 04/10/19 04/10/19 Levothyroxine [Synthroid] 88 mcg PO QDAC 04/10/19 04/10/19 Famotidine [Pepcid] 20 mg PO BID #20 tablet 04/11/19 HYDROcod/ACETAM 5/325 [[place] 5/325] 1 tab PO Q6H PRN #40 tablet 04/11/19 [place]-3/Dha/Epa/Fish Oil [[place] 3 1 each PO BID #60 capsule 04/11/19 500 Softgel] amLODIPine [Norvasc] 5 mg PO DAILY #30 tablet 04/11/19 - PHYSICAL EXAM AT DISCHARGE General Appearance: positive: No acute distress, Alert Eyes Bilateral: positive: Normal inspection, PERRL, EOMI, Conjunctivae nml ENT: positive: ENT inspection nml, Pharynx nml, No signs of dehydration Neck: positive: Nml inspection, Thyroid nml, No JVD. negative: Thyromegaly Respiratory: positive: Chest non-tender, No respiratory distress, Breath sounds nml Cardiovascular: positive: Regular rate & rhythm, No murmur, No gallop Peripheral Pulses: positive: 2+ Abdomen: positive: No organomegaly, Nml bowel sounds, No distention, Tenderness (Mildly tender to the epigastrium). negative: Guarding, Rebound Skin: positive: Color nml, No rash Extremities: positive: Non-tender, Full ROM Neurologic/Psychiatric: positive: Oriented x3, CN's nml (2-12) - LABS Result Diagrams: 04/11/19 06:15 04/12/19 05:35 - DIAGNOSTIC IMAGING Diagnostic Imaging Results: Final report reviewed - QUALITY (Female Hip Fx Only) Was patient sent home on osteoporosis medication?: No (Not indicated) - FOLLOW UP Follow Up: We will follow-up with PCP Gilmar Ya in 1 or 2 weeks. - TIME SPENT Time Spent in Discharge (Minutes): 35
[2019-04-11] MEDS ORDERED: PROMETHAZINE INJ 25 MG in SODIUM CHLORIDE 0.9% 50 ML IV STA (09:02)
[2019-04-11] MEDS ORDERED: HYDROmorphone 0.5 MG/0.5 ML SYRINGE IVP STA (09:02)
--- NOTE | 2019-04-11 09:08 | MISCELLANEOUS PROVIDER NOTE ---
Miscellaneous Provider Note - - Note: HPI: Patient is an 88 y/o female with a past medical history of hypertension, hyperlipidemia, hypothyroidism, patient type 2 diabetes mellitus insulin requiring, major depressive disorder, GERD who presented to the ED with epigastric pain which has been going on for the past 1wek. She describes it as an ache with no radiation. She rates the pain 8/10. She finally came in because it has been getting worse. She denies any previous occurence. She nicho any trauma or significant alcohol use. Work up in the ED included lipase which was elevated at 1200. CT of the abdomen was also suggestive of pancreatitis. She denied chest pain, THIEN, nausea, vomiting, fever or chills. As a result of the above finding, she is being admitted for further management. The rest of her history is unremarkable. Subjective: Patient was unable to tolerate a full carb controlled diet. Began with epigastric pain and nausea. Patient rating epigastric pain 5/10 with no radiation to mid back. Patient denies fevers, chest pain, shortness of breath, symptoms. Objective: Vital signs hemodynamically stable. Afebrile, heart rate 94 bpm, blood pressure 135/59, RR 18, 92% O2 saturation room air. General: Patient alert and oriented x3 in no acute respiratory distress. Pleasant and with some epigastric pain. HEENT: NCAT, Moist mucous membranes. Neck: No JVD, no bruits, trachea midline, no thyromegaly CV/lungs: RRR. S1-S2 within normal limits. No murmurs, gallops, clicks. CTA BL Abdomen: Positive tenderness in the epigastrium, Less tender however significant with no rebound, no ascites, no hepatosplenomegaly. Decreased bowel sounds all quadrants. Extremities/skin: No edema, clubbing, or cyanosis. 2+ pulses dorsalis pedis bilaterally. No maculopapular rashes. Neuro: Grossly intact Labs: Reviewed Imaging studies: Reviewed Assessment/plan: (1) Acute idiopathic versus drug-induced Pancreatitis-Resolving Conclusion/Plan: Lipase 216 decreased from 1230. However, patient still feeling some significant epigastric abdominal pain which was exacerbated by advancing patient's diet today. She is currently out of 5/10 pain. Would continue with pain control, placed on IV famotidine, give 1 dose of Dilaudid, Zofran. We will hold discharge for now, until pain is thoroughly controlled. Patient did not feel well in going home. Trend lipase in a.m., CMP. Etiology undetermined, However suspected drug-induced pancreatitis with simvastatin/hydrochlorothiazide use. Qualifiers: Chronicity: acute Pancreatitis type: unspecified pancreatitis type Acute pancreatitis complication: no infection or necrosis Qualified Code(s): K85.90 - Acute pancreatitis without necrosis or infection, unspecified (2) Hypothyroidism Conclusion/Plan: On synthroid, To continue with same dosage at home. (3) Hypertension Conclusion/Plan: Hold micardis. Hold indapamide. Norvasc instead (4) Hyperlipidemia Conclusion/Plan: Hold simvastatin for now. Will place on [place] 3 FA instead. Lipid panel reveals a total cholesterol 131, triglycerides 132, HDL 20, LDL 77. 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 Qualifiers: Diabetes mellitus terminal operator insulin use: with penitentiary use (6) GERD (gastroesophageal reflux disease) Conclusion/Plan: IV famotidine 20 mg twice daily (7) Depression Conclusion/Plan: Previously on Celexa, however do not see this on patient's reconciliation. CODE STATUS: Full code
[2019-04-11] MEDS ORDERED: SODIUM CHLORIDE FLUSH 0.9% 10 ML SYRINGE ONE ×3 (09:33→21:23)
[2019-04-11] MEDS: FAMOTIDINE 20 MG/2 ML VIAL IVP SCH ×2 (09:38→21:17)
[2019-04-11] MEDS: ASPIRIN EC 81 MG TABLET PO SCH (09:43)
[2019-04-11] MEDS: INSULIN ASPART 300 UNIT/3 ML PEN SUBQ SCH ×4 (09:44→21:10)
[2019-04-11] MEDS: POLYETHYLENE GLYCOL 3350 17 GM PACKET PO SCH (09:44)
[2019-04-11] MEDS: HEPARIN 5,000 UNIT/ML VIAL SUBQ SCH ×2 (09:45→21:17)
[2019-04-11] MEDS ORDERED: HYDROmorphone 1 MG/ML CARPUJECT IVP PRN (18:26)
[2019-04-11] MEDS ORDERED: FAMOTIDINE 20 MG TABLET PO SCH (21:00)
[2019-04-11] MEDS: INSULIN GLARGINE 300 UNIT/3 ML PEN SUBQ SCH (21:17)
[2019-04-12] MEDS: HYDROcod/ACETAM 5/325 MG TABLET PO PRN ×2 (00:36→04:31)
[2019-04-12] MEDS: LACTATED RINGERS 1,000 ML IV SCH (01:17)
[2019-04-12 05:56] LABS: ALBUMIN 2.8 g/dL (3.2-5.5); ALBUMIN/GLOBULIN RATIO 1.1 (1.0-2.2); ALKALINE PHOSPHATASE 46 IU/L (42-121); ALT ALANINE AMINOTRANSFERASE < 10 IU/L (10-60); AST ASPARTATE AMINOTRANSFERASE 21 IU/L (10-42); BUN - BLOOD UREA NITROGEN 10 mg/dL (6-20); CALCIUM 8.2 mg/dL (8.5-10.3); CARBON DIOXIDE - CO2 24 mmol/L (21-32); CHLORIDE 105 mmol/L (101-111); CREATININE 0.8 mg/dL (0.4-1.0); GFR - MDRD 68 (>89); GLUCOSE 123 mg/dL (70-100); LIPASE 95 U/L (22-51); SODIUM 139 mmol/L (135-145); TOTAL PROTEIN 5.4 g/dL (6.7-8.2)
[2019-04-12] MEDS ORDERED: LACTATED RINGERS 1,000 ML IV SCH (07:34)
[2019-04-12] MEDS: INSULIN ASPART 300 UNIT/3 ML PEN SUBQ SCH (07:43)
[2019-04-12] MEDS: ASPIRIN EC 81 MG TABLET PO SCH (07:52)
[2019-04-12] MEDS: HEPARIN 5,000 UNIT/ML VIAL SUBQ SCH (07:52)
[2019-04-12] MEDS: LEVOTHYROXINE 88 MCG TABLET PO SCH (07:52)
[2019-04-12] MEDS: POLYETHYLENE GLYCOL 3350 17 GM PACKET PO SCH (07:53)
[2019-04-12] MEDS ORDERED: PANTOPRAZOLE 40 MG TABLET PO SCH (08:00)
[2019-04-12 08:15] VITALS: BP 142/70
== END 2019-04-12 11:25 | disposition home or self-care (01) | DRG 440 ==
LOC: EDUNIT# → ED 02:24 → MS2 05:31 → OBSVTOIN 09:08
PROVIDERS: ADMIT Internal Medicine; ATTEND Family Medicine
DX: K85.90 Acute pancreatitis without necrosis or infection, unspecified (principal); K85.30 Drug induced acute pancreatitis without necrosis or infection; E78.00 Pure hypercholesterolemia, unspecified; T50.2X5A Adverse effect of carbonic-anhydrase inhibitors, benzothiadiazides and other diuretics, initial encounter; T46.6X5A Adverse effect of antihyperlipidemic and antiarteriosclerotic drugs, initial encounter; Y92.009 Unspecified place in unspecified non-institutional (private) residence as the place of occurrence of the external cause; E03.9 Hypothyroidism, unspecified; I10 Essential (primary) hypertension; Z79.82 Long term (current) use of aspirin; E78.5 Hyperlipidemia, unspecified; E11.9 Type 2 diabetes mellitus without complications; K21.9 Gastro-esophageal reflux disease without esophagitis; F32.9 Major depressive disorder, single episode, unspecified; M19.90 Unspecified osteoarthritis, unspecified site; Z79.4 Long term (current) use of insulin; Z90.49 Acquired absence of other specified parts of digestive tract
CPT/HCPCS: 36415; 74177; 80048; 80053; 80061; 81001; 82150; 83036; 83605; 83690; 85025; 96361; 96374; 96375; 96376; 99284; A9270; J1170; J1815; J7040; J7120; Q9967; 81003; 83721; 87086; 96360

== ENCOUNTER 2019-04-20 08:56 | Outpatient (CLI) | payer MEDICARE, OTHER ==
[2019-04-20] MEDS ORDERED: GADOBUTROL 7.5 MMOL/7.5 ML VIAL ONE (09:09)
[2019-04-20] MEDS ORDERED: GADOBUTROL 7.5 MMOL/7.5 ML VIAL IVP ONE (09:52)
--- NOTE | 2019-04-21 10:36 | MRI Report ---
Reason: ACUTE PANCREATITIS W/O NECROSIS OR INFECTION Procedure Date: 04/20/2019 Accession Number: [id number] / [id number] Procedure: MRI - MRCP W/WO CPT Code: FULL RESULT: EXAM: MR ABDOMEN WITH AND WITHOUT CONTRAST (MR PANCREAS AND MRCP) EXAM DATE: 04/20/2019 10:50 AM. CLINICAL HISTORY: Acute pancreatitis without necrosis or infection. COMPARISON: CT ABDOMEN/PELVIS W/ 04/10/2019 4:04 AM. TECHNIQUE: Multiplanar breath-hold T1, T2, and DWI sequences obtained through the pancreas and abdomen on an MR scanner. Dedicated 2D and 3D MRCP sequences obtained through the biliary and pancreatic ducts. Images obtained before and after administration of 6 mL Gadavist intravenous contrast. Multiphase postcontrast sequences obtained through the pancreas. FINDINGS: Lung Bases: Unremarkable. Liver: Interval development of perihepatic ascites. No intrahepatic lesion is seen. There is mild central intrahepatic biliary ductal dilation. Gallbladder: The gallbladder is surgically absent. Bile Ducts: The extrahepatic bile duct near the neyda hepatis measures 1.3 cm for the common hepatic duct and 1 cm in caliber for the distal CBD. The distal pancreatic duct near the sphincter measures up to 5 mm. Pancreas: Pancreatic parenchymal enhancement is preserved without evidence of necrosis or discrete enhancing mass. The previously noted area of fluid attenuation in the body of the pancreas demonstrates branch ductal contiguity and measures up to 0.9 cm as seen on image 18 series 701. MRCP images as seen on image 86 series 1301 demonstrates additional duct-like inferior extension as well as surrounding peripancreatic edema, sequela of pancreatitis versus IPMN. There is peripancreatic edema in keeping with pancreatitis. The pancreatic duct measures 3 mm in diameter at the body of the pancreas and shows no stone or stricture. Spleen: The spleen appears normal. Kidneys: The kidneys appear normal with no mass or hydronephrosis. Tiny sub-5 mm cysts are noted bilaterally. Adrenals: Previously demonstrated thickening of the left adrenal gland is lipid rich, adenoma, typically considered benign. Right adrenal gland is normal. Bowel: The previously seen perigastric pseudocyst has markedly enlarged and now measures 11.6 x 8.8 cm as seen coronally on image 10 series 501, causing gastric compression, readily amenable to transgastric decompression. A second smaller 4.7 x 4.9 cm well-defined cyst, presumed pancreatic pseudocyst, is seen more inferiorly near the abdominal midline as seen on coronal image 11 series 501. The visualized segments of the small bowel and colon appear normal with no inflammation or obstruction. Retroperitoneum: The retroperitoneal structures appear normal with no mass or lymphadenopathy. Other: None. IMPRESSION: Interval enlargement of perigastric pseudocyst with mass effect on the stomach. Peripancreatic edema and additional cystic collection in keeping with pancreatitis without evidence of pancreatic necrosis. The cystic 0.9 cm area in the region of the pancreatic body is in contiguity with the pancreatic duct with surrounding sequela of pancreatitis. Recommendation: The cystic pancreatic body structure could either represent an IPMN or sequela of pancreatitis. This could be clarified during follow-up imaging for presumed IPMN at the appropriate interval. Imaging interval recommendations regarding this are controversial and vary. The ACG would recommend a follow-up MRI every 2 years for 4 years as long as the lesion in question measures subcentimeter. If the patient is clinically symptomatic from the gastric compression, the large pseudocyst is readily amenable to transgastric drainage. RADIA
== END 2019-04-20 08:57 | disposition home or self-care (01) ==
LOC: DI 08:56
PROVIDERS: ATTEND Family Medicine
DX: K85.90 Acute pancreatitis without necrosis or infection, unspecified (principal)
CPT/HCPCS: 74183; A9585

== ENCOUNTER 2019-05-07 16:59 | Emergency (ER) | payer MEDICARE, OTHER ==
[2019-05-07] MEDS ORDERED: IOVERSOL 320 100 ML VIAL IVP ONE ×3 (17:00→18:18)
[2019-05-07] MEDS ORDERED: MORPHINE 2 MG/ML CARPUJECT IVP STA (17:18)
[2019-05-07] MEDS ORDERED: SODIUM CHLORIDE 0.9% 1,000 ML IV ONE (17:18)
[2019-05-07] MEDS ORDERED: ONDANSETRON 4 MG/2 ML VIAL IVP STA (17:18)
[2019-05-07 17:29] LABS: BASOPHILS # (AUTO) 0.1 10^3/uL (0.0-0.1); BASOPHILS % (AUTO) 0.6 %; EOSINOPHILS # (AUTO) 0.1 10^3/uL (0.0-0.7); EOSINOPHILS % (AUTO) 1.4 %; HGB - HEMOGLOBIN 14.5 g/dL (12.0-16.0); LYMPHOCYTES % (AUTO) 9.7 %; MEAN CORPUSCULAR HEMOGLOBIN 29.1 pg (27.0-31.0); MEAN CORPUSCULAR HGB CONC 32.9 g/dL (32.0-36.0); MEAN CORPUSCULAR VOLUME 88.4 fL (81.0-99.0); MEAN PLATELET VOLUME 9.4 fL (7.9-10.8); MONOCYTES # (AUTO) 0.6 10^3/uL (0.0-1.0); MONOCYTES % (AUTO) 6.2 %; NEUTROPHILS # (AUTO) 8.5 10^3/uL (1.5-6.6); NEUTROPHILS % (AUTO) 81.7 %; PLT - PLATELET COUNT 344 10^3/uL (130-450); RED BLOOD COUNT 4.99 10^6/uL (4.20-5.40); RED CELL DISTRIBUTION WIDTH 13.2 % (12.0-15.0); WHITE BLOOD COUNT 10.3 x10^3/uL (4.8-10.8)
[2019-05-07 17:39] LABS: ALBUMIN 3.5 g/dL (3.2-5.5); ALBUMIN/GLOBULIN RATIO 0.9 (1.0-2.2); BILIRUBIN,TOTAL 1.2 mg/dL (0.2-1.0); CALCIUM 9.4 mg/dL (8.5-10.3); CREATININE 0.9 mg/dL (0.4-1.0); TOTAL PROTEIN 7.3 g/dL (6.7-8.2)
--- NOTE | 2019-05-07 17:46 | ED Physician Documentation ---
PD HPI ABD PAIN - Stated complaint Stated Complaint: WEAK - Chief complaint Chief Complaint: Abd Pain - History obtained from History obtained from: Patient, Family - History of Present Illness Timing - onset: How many weeks ago (several weeks) Timing - details: Gradual onset, Intermittant Pain level max: 8 Pain level now: 8 Quality: Aching, Pain Location: All over / everywhere Radiation: No: Chest, , Lower back, Left flank, Left shoulder, Right flank, Right shoulder, Upper back Improved by: Meds (vicodin) Worsened by: Eating Associated symptoms: Nausea, Diarrhea. No: Fever, Vomiting, Hematemesis, Constipation, Melena, Hematochezia, Dysuria, Hematuria, Chest pain Similar symptoms before: Diagnosis (pancreatitis) Recently seen: Other (saw GI yesterday) - Additional information Additional information: 88-year-old female with abdominal pain. She has a history of chronic panc reatitis. Was scheduled for an MRI today but was having more pain so came here instead. Saw GI yesterday at [place]. Review of Systems Ten Systems: 10 systems reviewed and negative Constitutional: denies: Fever, Chills Nose: denies: Rhinorrhea / runny nose, Congestion Respiratory: denies: Cough GI: reports: Vomiting (patient states she vomits, states she does not) : denies: Dysuria Skin: denies: Rash PD PAST MEDICAL HISTORY - Past Medical History Cardiovascular: Hypertension, High cholesterol Respiratory: None Neuro: None Endocrine/Autoimmune: Type 2 diabetes, HyPOthyroidism GI: None : None HEENT: None Psych: Depression Musculoskeletal: Osteoarthritis Derm: None - Past Surgical History Past Surgical History: Yes General: Appendectomy Ortho: Spine surgery, 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 - Present Medications Home Medications: Ambulatory Orders Medication Instructions Recorded Confirmed Insulin Glargine [Lantus] 30 unit SUBQ QPM 02/09/17 02/09/17 Aspirin [Aspirin EC] 81 mg PO DAILY 04/10/19 04/10/19 Fluticasone [Flonase] 1 sprays DARIEL BID 04/10/19 04/10/19 Levothyroxine [Synthroid] 88 mcg PO QDAC 04/10/19 04/10/19 Famotidine [Pepcid] 20 mg PO BID #20 tablet 04/11/19 HYDROcod/ACETAM 5/325 [[place] 5/325] 1 tab PO Q6H PRN #40 tablet 04/11/19 [place]-3/Dha/Epa/Fish Oil [[place] 3 1 each PO BID #60 capsule 04/11/19 500 Softgel] amLODIPine [Norvasc] 5 mg PO DAILY #30 tablet 04/11/19 - Allergies Allergies/Adverse Reactions: Allergies Allergy/AdvReac Type Severity Reaction Status Date / Time No Known Drug Allergies Allergy Verified 02/09/17 17:15 - Social History Does the pt smoke?: No Smoking Status: Never smoker Does the pt drink ETOH?: No Does the pt have substance abuse?: No - POLST Patient has POLST: No POLST Status: Full Code PD ED PE NORMAL - Vitals Vital signs reviewed: Yes - General General: Well developed/nourished, Other (alert, oriented to person and place. curled on her left side) - HEENT HEENT: PERRL, Moist mucous membranes - Neck Neck: Supple, no meningeal sign - Cardiac Cardiac: RRR - Respiratory Respiratory: No respiratory distress, Clear bilaterally - Abdomen Abdomen: Soft, Non distended, Other (Diffusely tender to palpation.) - Back Back: No spinal TTP - Derm Derm: Warm and dry - Extremities Extremities: No edema - Neuro Neuro: No motor deficit, No sensory deficit Results - Vitals Vitals: Vital Signs - 24 hr 05/07/19 05/07/19 05/07/19 17:03 18:23 18:30 Temperature 37.1 C Heart Rate 94 62 84 Respiratory 18 18 16 Rate Blood Pressure 154/93 H 130/62 127/64 O2 Saturation 99 97 96 05/07/19 05/07/19 19:43 20:23 Temperature 36.6 C Heart Rate 85 82 Respiratory 20 18 Rate Blood Pressure 135/70 H 133/68 H O2 Saturation 94 95 Oxygen O2 Source Room air - Labs Labs: Laboratory Tests 05/07/19 05/07/19 17:16 17:16 WBC 10.3 RBC 4.99 Hgb 14.5 Hct 44.1 MCV 88.4 MCH 29.1 MCHC 32.9 RDW 13.2 Plt Count 344 MPV 9.4 Neut # (Auto) 8.5 H Lymph # (Auto) 1.0 L [place] # (Auto) 0.6 Eos # (Auto) 0.1 Baso # (Auto) 0.1 Absolute Nucleated RBC 0.00 Nucleated RBC % 0.0 Sodium 141 Potassium 3.3 L Chloride 102 Carbon Dioxide 21 Anion Gap 18.0 H BUN 36 H Creatinine 0.9 Estimated GFR (MDRD) 59 L Glucose 144 H Calcium 9.4 Total Bilirubin 1.2 H AST 18 ALT 14 Alkaline Phosphatase 72 Total Protein 7.3 Albumin 3.5 Globulin 3.8 Albumin/Globulin Ratio 0.9 L Lipase 152 H - Rads (name of study) CT abd/pelvis Radiology: Prelim report reviewed, EMP read contemporaneously, See rad report (Large 8.7 x 9.4 x 14.7 cm pseudocyst in the lesser sac with marked mass-effect on the stomach, as before. 2. Mild pancreatic ductal dilatation, as before. No giovani evidence of acute pancreatitis. 3. Minimal intrahepatic and moderate extra hepatic biliary ductal dilatation as before, possibly physiologic in this patient with prior cholecystectomy. 4. Mild descending and sigmoid colon diverticulosis without evidence of acute diverticulitis) PD MEDICAL DECISION MAKING - ED course Complexity details: reviewed results, re-evaluated patient, considered differential, d/w patient, d/w family, d/w family consultant (Dr. Daniel) ED course: 88-year-old female presents to the emergency department with nausea, diarrhea and abdominal pain. Feels better after pain medication, IV fluids. Tolerating p.o. without difficulty. CT scan shows an increasing in size pseudocyst. Discussed the case with [facility] who recommends follow-up in the clinic next week to discuss drainage of the pancreatic pseudocyst via endoscopic ultrasound. Patient and are both comfortable with this plan. Will recommend that she be placed on a liquid diet. Patient and family counseled regarding signs and symptoms for which I believe and urgent re-evaluation would be necessary. Patient with good understanding of and agreement to plan and is comfortable going home at this time This document was made in part using voice recognition software. While efforts are made to proofread this document, sound alike and grammatical errors may occur. Departure - Departure Disposition: 01 Home, Self Care Clinical Impression: Pancreatic pseudocyst Pancreatitis Qualifiers: Chronicity: acute Pancreatitis type: unspecified pancreatitis type Acute pancreatitis complication: no infection or necrosis Qualified Code(s): K85.90 - Acute pancreatitis without necrosis or infection, unspecified Condition: Good Instructions: ED Abdominal Pain Unkn Cause, ED Pancreatitis Follow-Up: Gilmar Ya MD [Primary Care Provider] - Trudy Flores PA-C [Physician No Access] - 05/10/19 Hiren Daniel MD [Physician No Access] - Comments: Call the GI clinic on Friday. She may do better on a liquid diet. They likely need to drain the pancreatic pseudocyst. Return if she worsens. Discharge Date/Time: 05/07/19 20:40
--- NOTE | 2019-05-07 18:48 | CT Report ---
Reason: diffuse abd pain, diarrhea Procedure Date: 05/07/2019 Accession Number: [id number] / [id number] Procedure: CT - Abdomen/Pelvis W CPT Code: FULL RESULT: EXAM: CT ABDOMEN AND PELVIS EXAM DATE: 05/07/2019 06:19 PM. CLINICAL HISTORY: Diffuse abd pain, diarrhea. Prior reports indicate pancreatitis. COMPARISONS: ABDOMEN/PELVIS W/ 04/10/2019 4:04 AM MRCP W/WO 04/20/2019 9:18 AM. TECHNIQUE: Routine helical CT imaging was performed through the abdomen and pelvis. IV contrast: OPTI 320 100ML. Enteric contrast: No. Reconstructions: Coronal and sagittal. In accordance with CT protocol optimization, one or more of the following dose reduction techniques were utilized for this exam: automated exposure control, adjustment of mA and/or KV based on patient size, or use of iterative reconstructive technique. FINDINGS: Lung Bases: Mild bandlike atelectasis or scarring in both lung bases. Liver: Normal. No masses. Gallbladder/Bile Ducts: The gallbladder is surgically absent as before, there is minimal intrahepatic and moderate extrahepatic biliary ductal dilatation with the suprapancreatic common bile duct measuring up to 15 mm. Spleen: Normal. Pancreas: Normal in size and contour. Minimal ductal dilatation in the head and body. Similar to the recent MRI, there is a large lesser sac pseudocyst measuring approximately 8.7 x 9.4 x 14.7 cm causing marked mass-effect on the fundus and body of the stomach. There is a small 2.2 cm lobulation of the pseudocyst laterally on the left. There is no peripancreatic edema. Adrenal Glands: Normal. Kidneys: Normal. No masses or hydronephrosis. Peritoneal Cavity/Bowel: No distention of the stomach. Mass-effect on the posterior gastric body and fundus, as before. Unopacified small bowel loops are nondilated. The appendix is not clearly identified. There is a small amount of formed stool in the colon. There is mild descending and sigmoid colon diverticulosis. There is no focal pericolonic fat stranding. There is no lymphadenopathy or pneumoperitoneum. There is trace dependent free fluid in the pelvis. Pelvic Organs: Small volume bladder. Uterus is surgically absent. No adnexal mass is identified. Vasculature: Moderate mitral annulus calcification moderate circumflex and right coronary artery calcification. Mild aortoiliac atherosclerotic calcification. Mesenteric, splenic, portal, and hepatic veins are unremarkable. Bones: There is severe multilevel lumbar degenerative disk disease. Other: There is a 1.6 cm fat-containing umbilical hernia. IMPRESSION: 1. Large 8.7 x 9.4 x 14.7 cm pseudocyst in the lesser sac with marked mass-effect on the stomach, as before. 2. Mild pancreatic ductal dilatation, as before. No giovani evidence of acute pancreatitis. 3. Minimal intrahepatic and moderate extra hepatic biliary ductal dilatation as before, possibly physiologic in this patient with prior cholecystectomy. 4. Mild descending and sigmoid colon diverticulosis without evidence of acute diverticulitis. RADIA
[2019-05-07 20:24] VITALS: BP 133/68
== END 2019-05-07 20:40 | disposition home or self-care (01) ==
LOC: ED 16:59
DX: K86.3 Pseudocyst of pancreas (principal); K85.90 Acute pancreatitis without necrosis or infection, unspecified; K57.30 Diverticulosis of large intestine without perforation or abscess without bleeding; I10 Essential (primary) hypertension; E11.9 Type 2 diabetes mellitus without complications; Z79.4 Long term (current) use of insulin; Z79.82 Long term (current) use of aspirin
CPT/HCPCS: 36415; 74177; 80053; 83690; 85025; 96361; 96374; 99284; Q9967

== ENCOUNTER 2019-05-13 09:52 | Outpatient (CLI) | payer MEDICARE, OTHER ==
[2019-05-13] MEDS ORDERED: GADOBUTROL 10 MMOL/10 ML VIAL IVP ONE (12:00)
--- NOTE | 2019-05-13 14:47 | MRI Report ---
Reason: ABNORMAL ABDOMINAL IMAGING, ACUTE PANCREATITIS Procedure Date: 05/13/2019 Accession Number: [id number] / [id number] Procedure: MRI - Abdomen W/WO CPT Code: FULL RESULT: EXAM: MR ABDOMEN WITH AND WITHOUT CONTRAST (MR PANCREAS AND MRCP) EXAM DATE: 05/13/2019 12:04 PM. CLINICAL HISTORY: Abnormal abdominal imaging, acute pancreatitis. COMPARISON: ABDOMEN/PELVIS W/ 05/07/2019 6:11 PM ABDOMEN/PELVIS W/ 04/10/2019 4:04 AM. TECHNIQUE: Multiplanar breath-hold T1, T2, and DWI sequences obtained through the pancreas and abdomen on an MR scanner. Dedicated 2D and 3D MRCP sequences obtained through the biliary and pancreatic ducts. Images obtained before and after administration of 7 mL Gadavist intravenous contrast. Multiphase postcontrast sequences obtained through the pancreas. FINDINGS: The examination is markedly degraded by motion artifact limiting the sensitivity for small calculi or masses. Postcontrast images are essentially nondiagnostic due to motion. Lung Bases: Unremarkable. Liver: The liver has normal size, morphology and signal. No evidence of mass. Gallbladder: The gallbladder is surgically absent. Bile Ducts: Extrahepatic biliary ductal dilation to 1.3 cm and mild intrahepatic biliary ductal dilation centrally are redemonstrated. The examination is markedly limited but no definite calculus is detected. Pancreas: Evaluation of the pancreas is limited by motion artifact and the large perigastric pseudocyst, within these significant limitations no mass is detected. The pancreatic duct measures up to 5 mm in diameter in the pancreatic head region. The pancreatic duct is obscured and/or compressed in portions of the body. Spleen: The spleen appears normal. Kidneys: The kidneys appear normal with no mass or hydronephrosis with the exception of a small amount of left perinephric fluid, presumably reactive. Adrenals: Global mild nodular thickening of the left adrenal gland which was first demonstrated on CT, lipid rich on dual echo, consistent with benign adenoma. Bowel: No bowel obstruction. Retroperitoneum: The retroperitoneal structures appear normal with no mass or lymphadenopathy. Other: None. IMPRESSION: Markedly limited examination, within these limitations: Redemonstration of the known large perigastric pseudocyst which measures at least 8.6 x 15.6 x 7.5 cm as seen. Redemonstration of mild intrahepatic as well as extrahepatic biliary ductal dilation, within marked limitations of the exam no calculus is seen. 1.2 x 0.8 cm water signal lesion in the body of the pancreas near the pseudocyst may represent IPMN or sequela of pancreatitis. Limited visualization of a dilated pancreatic duct in the head region. [facility]
== END 2019-05-13 09:53 | disposition home or self-care (01) ==
LOC: DI 09:52
PROVIDERS: ATTEND Internal Medicine
DX: K85.90 Acute pancreatitis without necrosis or infection, unspecified (principal); R93.5 Abnormal findings on diagnostic imaging of other abdominal regions, including retroperitoneum
CPT/HCPCS: 74183

== ENCOUNTER 2019-06-23 08:51 | Outpatient (CLI) | payer MEDICARE, OTHER ==
[2019-06-23 09:23] LABS: CREATININE 0.7 mg/dL (0.4-1.0)
== END 2019-06-23 08:52 | disposition home or self-care (01) ==
LOC: LAB 08:51
PROVIDERS: ATTEND Physician Assistant
DX: K85.90 Acute pancreatitis without necrosis or infection, unspecified (principal)
CPT/HCPCS: 36415; 82565; 84520

== ENCOUNTER 2019-06-24 11:07 | Outpatient (CLI) | payer MEDICARE, OTHER ==
[2019-06-24] MEDS ORDERED: IOVERSOL 320 100 ML VIAL IVP ONE ×2 (11:32→13:33)
--- NOTE | 2019-06-25 15:13 | CT Report ---
Reason: ACUTE PANCREATITIS Procedure Date: 06/24/2019 Accession Number: [id number] / [id number] Procedure: CT - ABDOMEN W/WO CPT Code: FULL RESULT: EXAM: CT ABDOMEN WITHOUT AND WITH CONTRAST EXAM DATE: 06/24/2019 12:15 PM. HISTORY: Acute pancreatitis. COMPARISON: ABDOMEN/PELVIS W/ 05/07/2019 6:11 PM MRCP W/WO 04/20/2019 9:18 AM ABDOMEN W/WO 05/13/2019 10:39 AM. TECHNIQUE: Routine helical CT imaging was performed through the abdomen before and after administration of IV contrast: 90 mL of Optiray 320 contrast. Enteric contrast: No. Reconstruction: Coronal and sagittal. In accordance with CT protocol optimization, one or more of the following dose reduction techniques were utilized for this exam: automated exposure control, adjustment of mA and/or KV based on patient size, or use of iterative reconstructive technique. FINDINGS: Lung Bases: Mild emphysematous changes at the visualized lung bases. Small pericardial effusion. Liver: Normal. No masses. Gallbladder/Bile Ducts: Previous cholecystectomy. Stable common bile duct dilatation to 15 mm. Spleen: Normal. Pancreas: No pancreatic ductal dilatation. Stable slight heterogeneity of parenchymal enhancement in the mid body of the pancreas. Significant interval decrease of pseudocyst in the lesser sac, today measuring 2.2 x 2.4 cm transversely, versus 9.4 x 8.7 cm. Adrenal Glands: No acute processes. Kidneys: Symmetric enhancement without hydronephrosis or mass. Peritoneal Cavity/Bowel: Normal. No free fluid, free air or adenopathy. No masses or acute inflammatory process. The appendix is well visualized and normal. Vasculature: No aneurysms or other significant abnormality. Bones: No significant abnormality. Other: Small umbilical hernia containing mesenteric fat. IMPRESSION: Significant decrease in size of pancreatic pseudocyst in the lesser sac. No developing masses detected. [facility]
== END 2019-06-24 11:08 | disposition home or self-care (01) ==
LOC: DI 11:07
PROVIDERS: ATTEND Physician Assistant
DX: K86.3 Pseudocyst of pancreas (principal)
CPT/HCPCS: 74170; Q9967

== ENCOUNTER 2019-07-09 19:09 | Outpatient (CLI) | payer MEDICARE, OTHER | END 2019-07-09 19:10 | disposition short-term general hospital (02) | LOC: EMS 19:09 | PROVIDERS: ATTEND Surgery | DX: R53.1 Weakness (principal); R10.84 Generalized abdominal pain | CPT/HCPCS: A0425; A0429 ==

== ENCOUNTER 2019-07-29 08:00 | Outpatient (CLI) | payer MEDICARE, OTHER ==
[2019-07-29 17:18] LABS: BASOPHILS # (AUTO) 0.1 10^3/uL (0.0-0.1); BASOPHILS % (AUTO) 0.7 %; EOSINOPHILS # (AUTO) 0.2 10^3/uL (0.0-0.7); EOSINOPHILS % (AUTO) 3.5 %; HGB - HEMOGLOBIN 10.6 g/dL (12.0-16.0); LYMPHOCYTES # (AUTO) 1.1 10^3/uL (1.5-3.5); LYMPHOCYTES % (AUTO) 16.5 %; MEAN CORPUSCULAR HEMOGLOBIN 29.8 pg (27.0-31.0); MEAN CORPUSCULAR HGB CONC 31.7 g/dL (32.0-36.0); MEAN CORPUSCULAR VOLUME 93.8 fL (81.0-99.0); MEAN PLATELET VOLUME 9.5 fL (7.9-10.8); MONOCYTES # (AUTO) 0.5 10^3/uL (0.0-1.0); MONOCYTES % (AUTO) 6.6 %; NEUTROPHILS # (AUTO) 4.9 10^3/uL (1.5-6.6); NEUTROPHILS % (AUTO) 72.4 %; PLT - PLATELET COUNT 463 10^3/uL (130-450); RED BLOOD COUNT 3.56 10^6/uL (4.20-5.40); RED CELL DISTRIBUTION WIDTH 15.7 % (12.0-15.0); WHITE BLOOD COUNT 6.8 x10^3/uL (4.8-10.8)
[2019-07-29 17:41] LABS: ALBUMIN 3.4 g/dL (3.2-5.5); ALBUMIN/GLOBULIN RATIO 0.9 (1.0-2.2); BILIRUBIN,TOTAL 0.3 mg/dL (0.2-1.0); CALCIUM 9.8 mg/dL (8.5-10.3); CREATININE 0.8 mg/dL (0.4-1.0)
== END 2019-07-29 23:59 | disposition home or self-care (01) ==
LOC: LAB.R 08:00
DX: K85.92 Acute pancreatitis with infected necrosis, unspecified (principal); R68.89 Other general symptoms and signs; N39.0 Urinary tract infection, site not specified
CPT/HCPCS: 80053; 81001; 81003; 85025; 87086

== ENCOUNTER 2019-08-19 08:41 | Outpatient (CLI) | payer MEDICARE, OTHER ==
[2019-08-19] MEDS ORDERED: GADOBUTROL 10 MMOL/10 ML VIAL IVP ONE (11:38)
--- NOTE | 2019-08-20 16:33 | MRI Report ---
Reason: ABN ABDOMINAL IMAGING Procedure Date: 08/19/2019 Accession Number: [id number] / [id number] Procedure: MRI - MRCP W/WO CPT Code: FULL RESULT: EXAM: MR ABDOMEN WITH AND WITHOUT CONTRAST EXAM DATE: 08/19/2019 11:45 AM. CLINICAL HISTORY: Follow-up pancreatitis, cystic mass/pseudocyst. COMPARISON: ABDOMEN W/WO 06/24/2019 11:33 AM MRCP W/WO 04/20/2019 9:18 AM ABDOMEN W/WO 05/13/2019 10:39 AM ABDOMEN/PELVIS W/ 04/10/2019 4:04 AM. TECHNIQUE: Multiplanar breath-hold T1, T2, and DWI sequences obtained through the abdomen on an MR scanner. Images obtained before and after administration of intravenous contrast. FINDINGS: Lung Bases: Unremarkable. Liver: No discrete mass identified. No fatty infiltration. No vascular thrombosis. Biliary system: Gallbladder has been removed. Mildly prominent extra hepatic bile duct is probably related to previous cholecystectomy without choledocholithiasis seen. Pancreas: Previously seen cystic structure between the gastric body and pancreatic body has resolved. There is a new approximately 6 x 3 x 6 cm cystic mass replacing most of the pancreatic head with heterogeneous internal debris. There is mild upstream pancreatic ductal dilatation. Spleen: Normal. Kidneys: Normal. No hydronephrosis. Adrenals: Normal. Peritoneal cavity: Grossly unremarkable where seen. Study not designed to evaluate bowel. Other: None. IMPRESSION: 1. Large, approximately 6 x 3 x 6 cm cystic mass replacing the pancreatic head is potentially a pseudocyst region of walled off necrosis in the setting of subacute pancreatitis. It does appear to communicate and possibly mildly obstruct the upstream pancreatic duct. Consider endoscopic evaluation. 2. Previously seen pseudocyst involving the gastric body has resolved. 3. Previous cholecystectomy. [facility]
== END 2019-08-19 08:42 | disposition home or self-care (01) ==
LOC: DI 08:41
PROVIDERS: ATTEND Internal Medicine Gastroenterology
DX: K86.2 Cyst of pancreas (principal); Z90.49 Acquired absence of other specified parts of digestive tract
CPT/HCPCS: 74183; A9585

== ENCOUNTER 2019-11-19 13:04 | Outpatient (CLI) | payer MEDICARE, OTHER ==
[2019-11-19 13:26] LABS: BASOPHILS # (AUTO) 0.1 10^3/uL (0.0-0.1); EOSINOPHILS # (AUTO) 0.3 10^3/uL (0.0-0.7); EOSINOPHILS % (AUTO) 3.9 %; HGB - HEMOGLOBIN 14.4 g/dL (12.0-16.0); LYMPHOCYTES # (AUTO) 1.7 10^3/uL (1.5-3.5); LYMPHOCYTES % (AUTO) 19.1 %; MEAN CORPUSCULAR HEMOGLOBIN 29.1 pg (27.0-31.0); MEAN CORPUSCULAR HGB CONC 32.7 g/dL (32.0-36.0); MEAN CORPUSCULAR VOLUME 89.3 fL (81.0-99.0); MEAN PLATELET VOLUME 9.1 fL (7.9-10.8); MONOCYTES # (AUTO) 0.5 10^3/uL (0.0-1.0); MONOCYTES % (AUTO) 5.8 %; NEUTROPHILS # (AUTO) 6.1 10^3/uL (1.5-6.6); NEUTROPHILS % (AUTO) 69.7 %; PLT - PLATELET COUNT 279 10^3/uL (130-450); RED BLOOD COUNT 4.94 10^6/uL (4.20-5.40); RED CELL DISTRIBUTION WIDTH 13.8 % (12.0-15.0); WHITE BLOOD COUNT 8.7 x10^3/uL (4.8-10.8)
[2019-11-19 13:50] LABS: ALBUMIN 3.9 g/dL (3.2-5.5); ALBUMIN/GLOBULIN RATIO 1.2 (1.0-2.2); ALKALINE PHOSPHATASE 76 IU/L (42-121); ALT ALANINE AMINOTRANSFERASE 26 IU/L (10-60); AMYLASE 152 U/L (28-100); AST ASPARTATE AMINOTRANSFERASE 31 IU/L (10-42); BILIRUBIN,TOTAL 0.6 mg/dL (0.2-1.0); BUN - BLOOD UREA NITROGEN 11 mg/dL (6-20); CALCIUM 9.6 mg/dL (8.5-10.3); CARBON DIOXIDE - CO2 28 mmol/L (21-32); CHLORIDE 102 mmol/L (101-111); CHOL/HDL RATIO 4.6 (<4.4); CHOLESTEROL 165 mg/dL; CREATININE 0.7 mg/dL (0.4-1.0); GFR - MDRD 79 (>89); GLUCOSE 124 mg/dL (70-100); HDL CHOLESTEROL 36 mg/dL; LDL CHOLESTEROL,CALCULATED 93 mg/dL; LDL/HDL RATIO 2.6 (<4.4); LIPASE 170 U/L (22-51); SODIUM 140 mmol/L (135-145); TOTAL PROTEIN 7.2 g/dL (6.7-8.2); VLDL CHOLESTEROL 36 mg/dL
[2019-11-19] MEDS ORDERED: GADOBUTROL 7.5 MMOL/7.5 ML VIAL ONE (14:05)
[2019-11-19 14:14] LABS: HB2 TOTAL 14.4 g/dL; HEMOGLOBIN A1C 0.83 g/dL; HEMOGLOBIN A1C % 7.4 % (4.6-6.2)
[2019-11-19] MEDS ORDERED: GADOBUTROL 7.5 MMOL/7.5 ML VIAL IVP ONE (17:22)
--- NOTE | 2019-11-22 03:22 | MRI Report ---
Reason: ABNL ABD IMAGING Procedure Date: 11/19/2019 Accession Number: [id number] / [id number] Procedure: MRI - MRCP W/WO CPT Code: Final Report FULL RESULT: EXAM: MR ABDOMEN WITH AND WITHOUT CONTRAST EXAM DATE: 11/19/2019 05:00 PM CLINICAL HISTORY: Follow-up cystic mass in the pancreas, previous pancreatitis. COMPARISON: MRCP W/WO 08/19/2019 9:49 AM, ABDOMEN W/WO 06/24/2019 11:33 AM, ABDOMEN/PELVIS W/ 05/07/2019 6:11 PM. TECHNIQUE: Multiplanar breath-hold T1, T2, and DWI sequences obtained through the abdomen on an MR scanner. Images obtained before and after administration of intravenous contrast. FINDINGS: Lung Bases: Unremarkable. Liver: No discrete mass identified. There is fatty infiltration. No vascular thrombosis. Biliary System: Gallbladder has been removed. Mildly prominent extrahepatic bile duct is probably related to previous cholecystectomy without choledocholithiasis seen. Pancreas: Decreasing complex cystic mass replacing most of the pancreatic head with heterogeneous internal debris. Currently measures approximately 4 x 2.5 x 4 cm, previously 6 x 3 x 6 cm cystic. It continues to cause upstream pancreatic ductal dilatation, worsening. No new collection. No solid appearing pancreatic mass. Spleen: Normal. Kidneys: Normal. No hydronephrosis. Adrenals: Normal. Peritoneal Cavity: Grossly unremarkable where seen. Study not designed to evaluate bowel. Other: None. IMPRESSION: 1. Decreased, now approximately 4 x 2.4 x 4 cm complex cystic mass replacing the pancreatic head, previously 6 x 3 x 6 cm. Again, this is probably a postinflammatory pseudocyst or region of walled off necrosis in the setting of previous episode of pancreatitis. It does appear to communicate and also obstruct the upstream pancreatic duct with progressive ductal dilatation. Consider endoscopic evaluation/treatment. 2. Fatty liver. 3. Previous cholecystectomy. [facility]
== END 2019-11-19 13:05 | disposition home or self-care (01) ==
LOC: DI 13:04
PROVIDERS: ATTEND Internal Medicine Gastroenterology
DX: K86.2 Cyst of pancreas (principal); K85.92 Acute pancreatitis with infected necrosis, unspecified; K76.0 Fatty (change of) liver, not elsewhere classified; E11.9 Type 2 diabetes mellitus without complications; E78.5 Hyperlipidemia, unspecified
CPT/HCPCS: 36415; 74183; 80053; 80061; 82150; 83036; 83690; 84443; 85025; A9585; 83721

== ENCOUNTER 2020-05-10 14:00 | Outpatient (CLI) | payer MEDICARE, OTHER ==
[2020-05-10 18:52] LABS: ALBUMIN 3.7 g/dL (3.2-5.5); ALBUMIN/GLOBULIN RATIO 1.2 (1.0-2.2); BASOPHILS # (AUTO) 0.1 10^3/uL (0.0-0.1); BASOPHILS % (AUTO) 0.9 %; BILIRUBIN,TOTAL 0.8 mg/dL (0.2-1.0); CREATININE 0.7 mg/dL (0.4-1.0); EOSINOPHILS # (AUTO) 0.3 10^3/uL (0.0-0.7); EOSINOPHILS % (AUTO) 4.2 %; HGB - HEMOGLOBIN 13.4 g/dL (12.0-16.0); LYMPHOCYTES % (AUTO) 27.5 %; MEAN CORPUSCULAR HEMOGLOBIN 31.3 pg (27.0-31.0); MEAN CORPUSCULAR HGB CONC 33.5 g/dL (32.0-36.0); MEAN CORPUSCULAR VOLUME 93.5 fL (81.0-99.0); MEAN PLATELET VOLUME 10.1 fL (7.9-10.8); MONOCYTES # (AUTO) 0.6 10^3/uL (0.0-1.0); MONOCYTES % (AUTO) 7.6 %; NEUTROPHILS # (AUTO) 4.4 10^3/uL (1.5-6.6); NEUTROPHILS % (AUTO) 59.1 %; PLT - PLATELET COUNT 218 10^3/uL (130-450); RED BLOOD COUNT 4.28 10^6/uL (4.20-5.40); RED CELL DISTRIBUTION WIDTH 13.2 % (12.0-15.0); TOTAL PROTEIN 6.7 g/dL (6.7-8.2); WHITE BLOOD COUNT 7.4 x10^3/uL (4.8-10.8)
[2020-05-10 19:49] LABS: HB2 TOTAL 14.4 g/dL; HEMOGLOBIN A1C 0.77 g/dL
== END 2020-05-10 23:59 | disposition home or self-care (01) ==
LOC: LAB.WCP 14:00
PROVIDERS: ATTEND Family Medicine
DX: E11.9 Type 2 diabetes mellitus without complications (principal); K85.92 Acute pancreatitis with infected necrosis, unspecified; E03.9 Hypothyroidism, unspecified; I10 Essential (primary) hypertension
CPT/HCPCS: 36415; 80053; 83036; 83690; 84443; 85025

== ENCOUNTER 2020-08-22 09:32 | Outpatient (CLI) | payer MEDICARE, OTHER ==
[2020-08-22 12:00] LABS: CALCIUM 9.2 mg/dL (8.5-10.3); CREATININE 0.8 mg/dL (0.4-1.0)
[2020-08-22 16:33] LABS: HEMOGLOBIN A1c% 7.7 % (4.27-6.07)
== END 2020-08-22 23:59 | disposition home or self-care (01) ==
LOC: LAB.WCP 09:32
PROVIDERS: ATTEND Family Medicine
DX: E11.9 Type 2 diabetes mellitus without complications (principal)
CPT/HCPCS: 36415; 80048; 82043; 82570; 83036

== ENCOUNTER 2020-08-23 07:00 | Outpatient (CLI) | payer MEDICARE, OTHER ==
[2020-08-23 18:57] LABS: CREATININE,URINE 32.1 mg/dL; MICROALBUM/CREATININE RATIO,UR 84.1 ug/mg (<30.0); MICROALBUMIN,URINE 2.7 mg/dL (0-300.0)
== END 2020-08-23 23:59 | disposition home or self-care (01) ==
LOC: LAB.R 07:00
PROVIDERS: ATTEND Family Medicine
DX: E11.9 Type 2 diabetes mellitus without complications (principal)
CPT/HCPCS: 82043; 82570

== ENCOUNTER 2020-12-20 08:00 | Outpatient (CLI) | payer MEDICARE, OTHER ==
[2020-12-20 18:15] LABS: BASOPHILS # (AUTO) 0.1 10^3/uL (0.0-0.1); BASOPHILS % (AUTO) 1.1 %; EOSINOPHILS # (AUTO) 0.3 10^3/uL (0.0-0.7); EOSINOPHILS % (AUTO) 3.6 %; LYMPHOCYTES % (AUTO) 26.9 %; MEAN CORPUSCULAR HEMOGLOBIN 30.5 pg (27.0-31.0); MEAN CORPUSCULAR HGB CONC 32.9 g/dL (32.0-36.0); MEAN CORPUSCULAR VOLUME 92.7 fL (81.0-99.0); MEAN PLATELET VOLUME 10.1 fL (7.9-10.8); MONOCYTES # (AUTO) 0.5 10^3/uL (0.0-1.0); MONOCYTES % (AUTO) 6.7 %; NEUTROPHILS # (AUTO) 4.5 10^3/uL (1.5-6.6); NEUTROPHILS % (AUTO) 61.3 %; PLT - PLATELET COUNT 225 10^3/uL (130-450); RED BLOOD COUNT 4.92 10^6/uL (4.20-5.40); RED CELL DISTRIBUTION WIDTH 12.1 % (12.0-15.0); WHITE BLOOD COUNT 7.3 x10^3/uL (4.8-10.8)
[2020-12-20 18:36] LABS: ALBUMIN 3.9 g/dL (3.2-5.5); ALBUMIN/GLOBULIN RATIO 1.4 (1.0-2.2); ALKALINE PHOSPHATASE 68 IU/L (42-121); ALT ALANINE AMINOTRANSFERASE 18 IU/L (10-60); AST ASPARTATE AMINOTRANSFERASE 24 IU/L (10-42); BILIRUBIN,TOTAL 0.7 mg/dL (0.2-1.0); BUN - BLOOD UREA NITROGEN 15 mg/dL (6-20); CARBON DIOXIDE - CO2 21 mmol/L (21-32); CHLORIDE 106 mmol/L (101-111); CHOL/HDL RATIO 4.7 (<4.4); CHOLESTEROL 192 mg/dL; CREATININE 0.7 mg/dL (0.4-1.0); GLUCOSE 179 mg/dL (70-100); HDL CHOLESTEROL 41 mg/dL; LDL CHOLESTEROL,CALCULATED 114 mg/dL; LDL/HDL RATIO 2.8 (<4.4); TOTAL PROTEIN 6.6 g/dL (6.7-8.2); VLDL CHOLESTEROL 37 mg/dL
== END 2020-12-20 23:59 | disposition home or self-care (01) ==
LOC: LAB.WCP 08:00
PROVIDERS: ATTEND Family Medicine
DX: E11.39 Type 2 diabetes mellitus with other diabetic ophthalmic complication (principal)
CPT/HCPCS: 36415; 80053; 80061; 82043; 82570; 83036; 83721; 85025

== ENCOUNTER 2020-12-22 08:00 | Outpatient (CLI) | payer MEDICARE, OTHER ==
[2020-12-22 19:31] LABS: CREATININE,URINE 159.7 mg/dL; MICROALBUM/CREATININE RATIO,UR 28.2 ug/mg (<30.0); MICROALBUMIN,URINE 4.5 mg/dL (0-300.0)
== END 2020-12-22 23:59 | disposition home or self-care (01) ==
LOC: LAB.R 08:00
PROVIDERS: ATTEND Family Medicine
DX: E11.39 Type 2 diabetes mellitus with other diabetic ophthalmic complication (principal)
CPT/HCPCS: 82043; 82570